=== PATIENT | male | born 1995 | race Two or more races ===

== ENCOUNTER 2023-08-20 06:37 | Emergency (ER) | payer MEDICAID, OTHER ==
[~2023-08-20] VITALS: Ht 170.2 cm; Wt 95.2 kg
[2023-08-20 06:40] VITALS: TEMP 98.9
[2023-08-20] MEDS ORDERED: ROCURONIUM 10MG/ML 10ML VIAL IV ONE (06:40)
[2023-08-20 06:56] VITALS: BP 0/0; RESP 0; O2SAT 0
[2023-08-20 06:58] VITALS: PULSE 0
== END 2023-08-20 06:49 ==
LOC: ER 06:37 → EDBD 06:37 → ER 06:49
DX: I46.9 Cardiac arrest, cause unspecified (principal); R41.82 Altered mental status, unspecified
CPT/HCPCS: 31500; 92950